=== PATIENT | female | born 2000 | race Two or more races ===

== ENCOUNTER 2019-05-14 10:49 | Emergency (ER) | payer OTHER, MEDICAID ==
[2019-05-14 11:04] VITALS: BP 155/104
[2019-05-14] MEDS ORDERED: PENICILLIN G BENZATHINE 1.2 MILLION UNIT/2 ML DISP.SYRIN IM ONE (11:15)
[2019-05-14] MEDS ORDERED: DEXAMETHASONE 4 MG TABLET PO ONE (11:15)
[2019-05-14] MEDS ORDERED: ACETAMINOPHEN 325 MG TABLET PO ONE (11:15)
--- NOTE | 2019-05-14 11:17 | ER Document Report ---
HPI - HPI Patient complains to provider of: Sore throat Time Seen by Provider: 05/14/19 11:09 Onset/Duration: Constant Quality of pain: Achy Pain Level: 4 Context: Patient presents complaining of sore throat for the past 3 days. Patient denies any fever. Associated Symptoms: Sore throat. denies: Nonproductive cough, Fever Exacerbated by: Denies Relieved by: Denies Similar symptoms previously: No Recently seen / treated by doctor: No - ROS ROS below otherwise negative: Yes Systems Reviewed and Negative: Yes All other systems reviewed and negative - CONSTITUTIONAL Constitutional: DENIES: Fever, Chills - EENT EENT: REPORTS: Sore Throat. DENIES: Congestion - NEURO Neurology: DENIES: Headache - GASTROINTESTINAL Gastrointestinal: DENIES: Nausea, Patient vomiting - REPRODUCTIVE Reproductive: DENIES: : - MUSCULOSKELETAL Musculoskeletal: DENIES: Back Pain, Neck Pain - DERM Skin Color: Normal Skin Problems: None Past Medical History - General Information source: Patient - Social History Smoking Status: Never Smoker Frequency of alcohol use: None Drug Abuse: None Family History: Reviewed & Not Pertinent Pulmonary Medical History: Reports: Hx Asthma Past Surgical History: Reports: Hx Orthopedic Surgery Vertical Provider Document - CONSTITUTIONAL Agree With Documented VS: Yes Exam Limitations: No Limitations General Appearance: WD/WN, No Apparent Distress - INFECTION CONTROL TRAVEL OUTSIDE OF THE [place] IN LAST 30 DAYS: No - HEENT HEENT: Atraumatic, Normocephalic, Pharyngeal Exudate, Pharyngeal Tenderness, Pharyngeal Erythema - NECK Neck: Lymphadenopathy-Left, Lymphadenopathy-Right - RESPIRATORY Respiratory: Breath Sounds Normal, No Respiratory Distress - CARDIOVASCULAR Cardiovascular: Regular Rate, Regular Rhythm - MUSCULOSKELETAL/EXTREMETIES Musculoskeletal/Extremeties: MAEW - NEURO Level of Consciousness: Awake, Alert, Appropriate - DERM Integumentary: Warm, Dry, No Rash Course - Re-evaluation Re-evalutation: 05/14/19 11:16 Patient was findings worrisome for strep pharyngitis. Patient with exudative tonsils with cervical lymphadenopathy. No concern for [employer] at this time. Good return precautions discussed with patient. - Vital Signs Vital signs: Temp Pulse Resp BP Pulse Ox 98.3 F 100 16 155/104 H 97 05/14/19 11:02 05/14/19 11:02 05/14/19 11:02 05/14/19 11:05/14/19 11:02 Discharge - Discharge Clinical Impression: Tonsillitis Condition: Stable Disposition: HOME, SELF-CARE Instructions: Antibiotic Shot ([facility]), Corticosteroid Medication ([facility]), Use of [id number] Ibuprofen ([facility]), Tonsillitis ([facility]) Additional Instructions: Return immediately for any new or worsening symptoms Followup with your primary care provider, call tomorrow to make a followup appointment Increase oral fluids and stay well-hydrated Take Tylenol or Motrin [id number] as directed to help with pain symptoms Referrals: [facility] [Provider Group] - Follow up as needed
== END 2019-05-14 11:45 | disposition home or self-care (01) ==
LOC: ER 10:49
DX: J03.90 Acute tonsillitis, unspecified (principal); J45.909 Unspecified asthma, uncomplicated
CPT/HCPCS: 99282; 96372; 87070; 87077; J0561